=== PATIENT | female | born 1970 | race Caucasian/White ===

== ENCOUNTER → 2023-03-29 | Outpatient (CLI) | payer OTHER, SELFPAY ==
[2023-03-29 17:37] LABS: Absolute Lymphocyte Count 3.05 X10^3/uL (0.83-4.51); Absolute Neutrophil Count 5.7 X10^3/uL (2.0-7.7); Basophil# 0.08 X10^3/uL; Basophil% 0.8 % (0-1); Eosinophil# 0.19 X10^3/uL; Hematocrit 47.3 % (37-47); Hemoglobin 15.7 g/dL (12.0-15.0); Lymphocyte # 3.05 X10^3/ul (0.83-4.51); Lymphocyte % 31.6 % (19-41); Mean Corp Hgb Conc 33.2 g/dL (32-36); Mean Corpuscular Hgb 29.3 pg (27.0-32.0); Mean Corpuscular Volume 88.4 fL (81-99); Mean Platelet Vol. 11.4 fl (6.2-12.0); Monocyte# 0.55 X10^3/uL; Monocyte% 5.7 % (0-10); NRBC Flagged by Analyzer 0 % (0-5); Neutrophil # 5.74 X10^3/uL (2.7-7.7); Neutrophil % 59.5 % (47-70); Platelet Count 320 K/mm3 (150-450); RBC Distribution Width CV 11.9 % (11.6-14.6); RBC Distribution Width SD 38.3 fl (35.1-43.9); Red Blood Count 5.35 M/mm3 (4.2-5.4); White Blood Count 9.7 K/mm3 (4.4-11.0)
[2023-03-29 18:45] LABS: Hemoglobin A1c 12.8 % (3.8-5.6)
[2023-03-29 19:01] LABS: ALB/GLOB Ratio 0.9 RATIO (0.9-2.4); AST(SGOT) 8 U/L (15-37); Alanine Aminotransfer ALT/SGPT 21 U/L (13-56); Albumin, Serum 3.5 g/dL (3.2-5.0); Alkaline Phosphatase 89 U/L (45-117); Anion Gap 9 (5-15); BUN 13 mg/dL (7-18); Calcium,Total 9.4 mg/dL (8.5-10.1); Chloride 100 mmol/L (98-107); Cholesterol 319 mg/dL (200); Creatinine, Serum 0.81 mg/dL (0.55-1.02); EST Glomerular Filtration Rate 79 mL/min (>60); Est Glom Filt Rate - Afr Amer 96 mL/min (>60); Globulin 3.9 g/dL (2.2-4.2); Glucose 452 mg/dL (74-106); High Density Lipoprotein 41 mg/dL; Protein, Total 7.4 g/dL (6.4-8.2); Sodium Level 132 mmol/L (136-145); Thyroid Stim Hormone (TSH) 0.56 uIU/mL (0.358-3.74); Triglycerides 551 mg/dL
== END | disposition home or self-care (01) ==
LOC: MFPLAB 16:07
PROVIDERS: PCP Family Medicine; Visit Provider Family Medicine
DX: Z00.00 Encounter for general adult medical examination without abnormal findings (principal); Z13.220 Encounter for screening for lipoid disorders; Z13.1 Encounter for screening for diabetes mellitus; Z13.0 Encounter for screening for diseases of the blood and blood-forming organs and certain disorders involving the immune mechanism; Z13.228 Encounter for screening for other metabolic disorders
CPT/HCPCS: 80053; 80061; 83036; 84443; 85025

== ENCOUNTER 2023-04-10 08:18 | Outpatient (CLI) | payer OTHER, SELFPAY ==
[2023-04-13 14:09] LABS: HPV APTIMA, High Risk Negative (Negative)
[2023-04-13 17:05] LABS: HPV Reflexed? YES, CHARGE PATIENT
== END 2023-04-10 23:59 | disposition home or self-care (01) ==
LOC: LABSPEC 08:34
PROVIDERS: PCP Family Medicine; Visit Provider Family Medicine
DX: Z12.72 Encounter for screening for malignant neoplasm of vagina (principal)
CPT/HCPCS: 87624; 88175; G0145

== ENCOUNTER → 2023-04-17 | Outpatient (CLI) | payer OTHER, SELFPAY ==
--- NOTE | 2023-04-17 | CER_PTH ---
PATIENT: YANNICK OLGUIN [id number] AGE/SX: 52/F ROOM: RE04/17/[address]: Dr. Yudelka Chinchilla MD : 1970 BED: DIS: 04/17/2023 SPEC #: [id number] RECD: 04/18/23 08:22 STATUS: OLMAN REChloe #: [id number] CHAR: 04/17/23 00:[address]: Yudelka Chinchilla DEPT: SURGICAL PATHOLOGY RECD BY: Vonnie Calzada ENTERED: 04/18/23 08:23 SP TYPE: CERV OTHR DR: Kiah Valenzuela DO Tissues: Uterine cervix, NOS Procedures: Surgery Specimen Level IV HEADER OPERATION: Cervical polyp biopsy PRE-OP DIAGNOSIS: Cervical polyp TISSUE SUBMITTED: Cervical polyp MICROSCOPIC DIAGNOSIS Cervical polyp, biopsy: Benign endocervical polyp, inflamed. AM:yvonne 04/19/2023 MICROSCOPIC DESCRIPTION Slides are reviewed. GROSS DESCRIPTION Received is one container labeled with the patient's name and not further designated. The specimen consists of a single elongated fragment of maya tissue measuring 0.5 x 0.2 x 0.2 cm. The specimen is totally submitted in one cassette. / AM:yvonne 04/18/2023 TC:2 CPT: 19014
== END | disposition home or self-care (01) ==
PROVIDERS: PCP Family Medicine; Visit Provider Obstetrics & Gynecology
DX: N84.1 Polyp of cervix uteri (principal)
CPT/HCPCS: 88305

== ENCOUNTER → 2023-04-19 | Outpatient (CLI) | payer OTHER, SELFPAY ==
--- NOTE | 2023-04-19 16:10 | US_ITS ---
STUDY: ULTRASOUND OF THE FEMALE PELVIS - COMPLETE REASON FOR EXAM: Female, 52 years old. Polyp LMP: August 02, 2022. TECHNIQUE: Transabdominal TECHNICAL QUALITY: Adequate. COMPARISON: None. FINDINGS: The uterus is anteverted and is in a midline position. The uterus measures 8.6 cm x 8.5 cm x 6 cm. Normal uterine cervix. The endometrium measures 4 mm in thickness, and is hyperechoic. There is no demonstrated endometrial mass. Is a 4.5 cm x 4.5 cm x 3.4 cm fibroid in the fundal portion of the uterus. A similar appearing fibroid measuring 4.7 cm x 5.6 x 5.9 cm is also seen in the body of the uterus. I.U.D. - The patient does not have an I.U.D. The right ovary is non-visualized. The left ovary is non-visualized. There is no fluid in the cul-de-sac. The pre void volume of the bladder was 736 ml. US/Pelvic (Non ) IMPRESSION: Fibroid uterus. Electronically Signed: Kehinde Macias MD at 9:28 EST ,
== END | disposition home or self-care (01) ==
LOC: US 16:07
PROVIDERS: PCP Family Medicine; Referring Provider Obstetrics & Gynecology; Visit Provider Obstetrics & Gynecology
DX: N84.1 Polyp of cervix uteri (principal)
CPT/HCPCS: 76856

== ENCOUNTER 2023-04-20 09:49 | Day surgery (SDC) | payer OTHER, SELFPAY ==
[2023-04-20] VITALS (7 sets, daily range): BP systolic 115–136; BP diastolic 75–88; PULSE 76–104; RESP 14–18; TEMP 37.2–37.4; O2SAT 92–100; BMI 34.8
[2023-04-20] MEDS: Lactated Ringers 1,000 ML 15 ML IV (10:39)
[2023-04-20 10:45] LABS: Bedside Glucose 232 mg/dL (74-106)
[2023-04-20 10:46] LABS: Internal QC Validated? YES +Cl - CLEAR BKGD; Pregnancy, Urine Negative Negative; Record Kit Lot#,Urine Preg 667200
[2023-04-20 10:57] LABS: ALB/GLOB Ratio 1.1 RATIO (0.9-2.4); AST(SGOT) 11 U/L (15-37); Alanine Aminotransfer ALT/SGPT 21 U/L (13-56); Albumin, Serum 3.8 g/dL (3.2-5.0); Alkaline Phosphatase 71 U/L (45-117); Anion Gap 8 (5-15); BUN 16 mg/dL (7-18); BUN/Creat Ratio 21.5 RATIO (10-20); Calcium,Total 9.6 mg/dL (8.5-10.1); Chloride 106 mmol/L (98-107); Creatinine, Serum 0.74 mg/dL (0.55-1.02); EST Glomerular Filtration Rate 87 mL/min (>60); Est Glom Filt Rate - Afr Amer 106 mL/min (>60); Estimated Creatinine Clearance 78.54 ml/min; Globulin 3.6 g/dL (2.2-4.2); Glucose 222 mg/dL (74-106); Potassium 3.9 mmol/L (3.5-5.1); Protein, Total 7.4 g/dL (6.4-8.2); Sodium Level 138 mmol/L (136-145)
--- NOTE | 2023-04-20 11:36 | PCM.HP.BLA ---
History and Physical Assessment and Plan (1) Cervical polyp: Status: Acute Comment: biopsy done, recommend d and c hysteroscopy cervical polypectomy ALDAIR if biopsy normal. cleared by PCP for surgery. Orders: Orders Pelvic (Non ) Today N84.1 - Polyp of cervix uteri Addendum polyp prepped with betadine and biopsy taken with tishler forceps, bleeding controlled with pressure, silver nitrate, and monsel's paste. EBL 20cc. reviewed bleeding precautions with patient. 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 Is patient in pain?: No Allergies No Known Allergies Allergy (Unverified 04/17/23 15:46) Medications dapagliflozin propanediol 10 mg tablet (Farxiga) 10 mg PO DAILY 04/17/23 [History Confirmed 04/17/23] lisinopril 10 mg tablet 10 mg PO DAILY 04/17/23 [History Confirmed 04/17/23] Is last menstrual period known: Yes Last Menstrual Period: 08/07/22 Patient : No : No PFSH Medical History Diabetes High cholesterol Hypertension Tobacco use Family History (Updated 04/17/23 @ 15:51 by Juany Cruz) Mother Diabetes Hypertension Thyroid disorderFather Diabetes Hypertension Social History (Updated 04/17/23 @ 15:55 by Juany Cruz) adopted: No household members: none number of children: 0 current occupational status: employed 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 she is newly diagnosed with chronic medical problems and has been started on medications. she denies any vaginal bleeding but did feel a lump vaginally and her PCP recommended she come here. Pap was done and it was normal. she is newly diabetic but blood sugars are down to 190 already with medication and diet. she denies pelvic pain or pressure. Female Reproductive History Last Menstrual Period: 08/07/22 Menopausal Symptoms: No night sweats History 0 Elective abortions Hx Para Spontaneous abortions Hx # Term Pregnancies Ectopic pregnancies Hx # Pregnancies Multiple births # of living children 0 ROS Const Constitutional: Denies fatigue, night sweats, weight gain or weight loss ENT ENT: Reports system reviewed and no additional complaints, except as documented Cardio Card: Denies chest pain Resp Resp: Denies cough or dyspnea GI GI: Reports as per HPI; Denies abdominal pain, constipation, nausea or vomiting : Denies nipple discharge, urinary frequency, urinary incontinence, urinary hesitancy, urinary urgency, vaginal discharge, vaginal dryness, vaginal odor or vaginal pruritus Musc Musc: Denies arthralgias, back pain or muscle weakness Skin Skin/Breast: Denies alopecia, change in hair, dry skin, breast mass, breast pain, breast skin changes or nipple discharge Neuro Neuro: Reports system reviewed and no additional complaints, except as documented Psych Psych: Reports system reviewed and no additional complaints, except as documented Endo Endo: Denies cold intolerance, excessive sweating, heat intolerance or polydipsia Reginaldo/Lymph Hematologic/Lymphatic: Denies easy bleeding, Denies easy bruising and Denies lymphadenopathy Exam Const General: cooperative, healthy appearing, comfortable and no acute distress Orientation: alert [facility] Head: normal to inspection and normocephalic Ears: hearing grossly normal bilaterally and external ears normal Nose: external nose normal and nares normal Face and sinus: normal facial exam Neck Neck: normal visual inspection and no lymphadenopathy Thyroid: thyroid normal Chest Chest palpation & inspection: normal inspection of the chest Resp Effort & Inspection: normal respiratory effort Cardio Rate: regular rate GI Inspection: normal to inspection and non-distended Palpation: soft and no hepatosplenomegaly Other: large 5 cm x 3 cm cervical polyp with large base attached to right cervix. normal vagina and nl uterus and ovaries Musc Other: gross motor intact no deficits, full bilateral strength Skin General: no rashes or lesions noted Neuro General: patient alert, patient awake, moves all extremities and no focal motor deficits Motor: muscle tone normal throughout Extrem General: normal to inspection and no pedal edema Psych Appearance: grossly normal Mental Status: mental status grossly normal Affect: normal affect Speech and Movement: speech and movement normal Coding Level of Care Code Off vis,new,level 4 Diagnoses Cervical polyp N84.1 Assessment and Plan Assessment and Plan (1) Cervical polyp: Status: Acute Comment: biopsy done, recommend d and c hysteroscopy cervical polypectomy ALDAIR if biopsy normal. cleared by PCP for surgery. Orders: Orders Pelvic (Non ) Today N84.1 - Polyp of cervix uteri Plan After discussing the patient's diagnosis and treatment plan options, patient wishes to proceed with surgical management. I have discussed with the patient the risks, benefits, and alternatives of the procedure which include but are not limited to risks of anesthesia, bleeding, infection, possible damage to bowel, bladder, or surrounding vasculature which could lead to additional surgery to evaluate any complications. Patient agrees to procedure and wishes to proceed. ACOG/uptodate references given for additional information regarding procedure. UPDATE- I have seen the patient and performed any clinically relevant updates to the history and physical exam. Yudelka Chinchilla MD
--- NOTE | 2023-04-20 11:55 | EMB_PTH ---
PATIENT: YANNICK OLGUIN [place] [facility] [place][id number] AGE/SX: 52/F ROOM: RE04/20/[address]: Dr. Yudelka Chinchilla MD : 1970 BED: DIS: 04/20/2023 SPEC #: [id number] RECD: 04/23/23 07:56 STATUS: OLMAN QUARLESChloe #: [id number] CHAR: 04/20/23 11:[address]: Yudelka Chinchilla DEPT: SURGICAL PATHOLOGY RECD BY: Vonnie Calzada ENTERED: 04/23/23 07:58 SP TYPE: ENDOM BX/C DANA DR: Kiah Valenzuela DO Tissues: A - Endocervical B - Endometrium, NOS Procedures: Surgery Specimen Level IV HEADER OPERATION: Dilation and curettage, hysteroscopy, polypectomy, Symphion PRE-OP DIAGNOSIS: Cervical polyp TISSUE SUBMITTED: A - Cervical polyp, B - Endometrial polyp and curettings MICROSCOPIC DIAGNOSIS A. Cervical polyp, polypectomy: Benign endocervical polyp, ulcerated and inflamed. B. Endometrial polyp and curettings: Weakly proliferative dyssynchronous endometrium with focal glandular breakdown. Fragments of benign myometrium. AM:yvonne 04/24/2023 MICROSCOPIC DESCRIPTION Slides are reviewed. GROSS DESCRIPTION A - Received in fixative is one container labeled with the patient's name and designated cervical polyp. The specimen consists of a polypoid fragment of maya tissue measuring 4.0 x 2.5 x 1.5 cm. A inbound customer service representative longitudinal section is submitted in one cassette. B - Received in fixative is one container labeled with the patient's name and designated endometrial polyp. The specimen consists of multiple irregular fragments of light maya soft tissue that in aggregate measure 3.0 x 1.0 x 0.2 cm. The specimen is totally submitted in one cassette. / AM:yvonne 04/23/2023 TC:5 CPT: 04990 x2
[2023-04-20] MEDS: Cefotetan 2 GM in 0.9% NS 100 ML IV (12:24)
[2023-04-20] MEDS: Lidocaine 1% (30 ml sdv) 30 ML Vial (12:25)
--- NOTE | 2023-04-20 12:55 | PCM.OPRPT ---
Problems Associated Problem List Diagnoses (1) Cervical polyp: (2) Endometrial polyp: Report of Operation Date of Procedure: 04/20/23 Pre-Operative Diagnosis: endocervical polyp Post-Operative Diagnosis: same Surgery/Procedure Performed:: d and c hysteoroscpy symphion resection polypectomy/hysteroscopic myomectomy cervical polypectomy Description of Surgical Findings:: endometrial polyp x 2 large cervical polyp 5 x 3 cm attached to anterior lip of cervix Surgeon: Yudelka Chinchilla seo marketing specialist: None Type of Anesthesia: Local MAC Special Medications: none Specimen's removed: EMC, polyp of cervix and endometrial polyp possible endometrial fibroid? Drains: none Estimated Blood Loss (mL): 50 Fluids Replaced: crystalloid Description of Procedure: Patient was prepped and draped in a normal sterile fashion under MAC anesthesia. A paracervical block was placed with 1% lidocaine. A weighted speculum was placed in the vagina and two stay sututres were plcaed on either side of the cervix. the large 5 x 3 cm cervical polyp was attached to the left side of the cervix and the base was bovied across and then sutured with figur eof eight 0 vicryl sutures. then the anterior lip of the cervix was grasped with a single-tooth tenaculum. Cervix was progressively dilated to allow passage of a 5 mm hysteroscope. The lining was fully visualized and noted to have a large poly pand either a polyp or possible sumbmuosal fibroid . Uterine sounded to 10 cm. Using the symphion device, the polyp and either polyp or fibroid was progressively removed without complications. Direct visual curettage was performed using the device , and all specimens were sent to pathology. All instruments were removed from the vagina and excellent hemostasis was noted. Patient was awoken and taken to recovery in stable condition. Grafts/Implants Used: none Complications none Admit VTE Documentation VTE Present on Admission: No VTE Mechan Device Prophylaxis: SCD's Multi Select Codes Urinary/Genital Urinary/Genital CPT Codes: 03922 Hysteroscopy,EMC, Polypectomy and Other Procedure See Report (ALERT BILLING)
--- NOTE | 2023-04-20 12:57 | DCINST_ITS ---
Discharge Instructions Diet Discharge Diet: No restrictions Activity Discharge Activity: Return to Normal Activity, May Shower and May Take a Tub Bath (after 1 week) May resume sexual activity in: 1-2 weeks Weight Bearing Status: Weight bearing as tolerated Lifting Restrictions: none Dressing / Incision Call your doctor if you observe: Fever of 101 or Higher, Using more than 1 pad per hour, Shortness of breath and Uncontrolled pain Follow Up Care Please Follow Up With: Yudelka Chinchilla MD When: Call [phone] to schedule appointment. Test Results: Test results from this visit will be discussed in further detail at your follow- up appointment, if applicable. Discharge Plan Admission Attending Provider: Yudelka Chinchilla Primary Care Provider: Kiah Valenzuela Discharge Orders/Prescriptions Prescriptions: No Action lisinopril 10 mg tablet 10 mg PO DAILY Farxiga 10 mg tablet 10 mg PO DAILY Referrals / Follow Up: Kiah Valenzuela, DO [Primary Care Provider] - Disposition Disposition (needs filled in before D/C Order can be placed): Home, Self Care
[2023-04-20 13:48] LABS: Bedside Glucose 166 mg/dL (74-106)
== END 2023-04-20 13:52 | disposition home or self-care (01) ==
LOC: SDC 09:51 → AC 09:53
PROVIDERS: Anesthesiology; PCP Family Medicine; Referring Provider Obstetrics & Gynecology; Visit Provider Obstetrics & Gynecology
PROC: 0UB98ZZ Excision of Uterus, Via Natural or Artificial Opening Endoscopic (ICD-10-PCS; CPT 58558; principal; 2023-04-20 11:40)
DX: N84.0 Polyp of corpus uteri (principal); E11.9 Type 2 diabetes mellitus without complications; N84.1 Polyp of cervix uteri; E78.00 Pure hypercholesterolemia, unspecified; I10 Essential (primary) hypertension; Z79.84 Long term (current) use of oral hypoglycemic drugs; Z79.899 Other long term (current) drug therapy; Z72.0 Tobacco use
CPT/HCPCS: 58561; 80053; 81025; 82962; 86850; 86900; 86901; 88305; 93005; J7120; J2405

== ENCOUNTER → 2023-05-10 | Outpatient (CLI) | payer OTHER, SELFPAY ==
[2023-05-10 16:09] LABS: Microalbumin,Random Urine < 5.0 mg/L (NO RANGE EST.)
[2023-05-10 16:47] LABS: AST(SGOT) 10 U/L (15-37); Alanine Aminotransfer ALT/SGPT 16 U/L (13-56); Albumin, Serum 3.7 g/dL (3.2-5.0); Alkaline Phosphatase 65 U/L (45-117); Anion Gap 7 (5-15); BUN 11 mg/dL (7-18); BUN/Creat Ratio 17.9 RATIO (10-20); Calcium,Total 9.4 mg/dL (8.5-10.1); Chloride 106 mmol/L (98-107); Cholesterol 224 mg/dL (200); Creatinine, Serum 0.62 mg/dL (0.55-1.02); EST Glomerular Filtration Rate 109 mL/min (>60); Est Glom Filt Rate - Afr Amer 132 mL/min (>60); Globulin 3.6 g/dL (2.2-4.2); Glucose 140 mg/dL (74-106); High Density Lipoprotein 43 mg/dL; Potassium 4.1 mmol/L (3.5-5.1); Protein, Total 7.3 g/dL (6.4-8.2); Sodium Level 138 mmol/L (136-145); Triglycerides 127 mg/dL; Very Low Density Lipoprotein 25 mg/dL (5-40)
[2023-05-10 18:02] LABS: Hemoglobin A1c 10.7 % (3.8-5.6)
== END | disposition home or self-care (01) ==
LOC: MTLAB 12:38
PROVIDERS: PCP Family Medicine; Referring Provider Family Medicine; Visit Provider Family Medicine
DX: E11.65 Type 2 diabetes mellitus with hyperglycemia (principal)
CPT/HCPCS: 36415; 80053; 80061; 82043; 82570; 83036

== ENCOUNTER → 2023-10-16 | Outpatient (CLI) | payer OTHER, SELFPAY ==
--- NOTE | 2023-10-16 16:42 | US_ITS ---
STUDY: ULTRASOUND OF THE FEMALE PELVIS - COMPLETE REASON FOR EXAM: Female, 53 years old. Uterine fibroid LMP: Patient is postmenopausal. TECHNIQUE: Transabdominal and Transvaginal TECHNICAL QUALITY: Adequate. COMPARISON: Comparison is made with prior study dated April 19, 2023. FINDINGS: The uterus is anteverted and is in a midline position. The uterus measures 7 cm x 6.9 cm x 3.5 cm. Normal uterine cervix. The endometrium measures 1 mm in thickness, and is heterogeneous (striated). There is no demonstrated endometrial mass. Heterogeneous appearance of the myometrium. 2 dominant fibroids are seen. The larger measures 8.3 cm x 6.9 cm x 7.8 cm. A similar fibroid measuring 5.2 cm x 5.2 cm by 3.4 cm is seen as well. These have increased in size as compared to prior study. I.U.D. - The patient does not have an I.U.D. The right ovary is non-visualized. The left ovary is visualized. The left ovary measures 2.5 cm x 2.2 cm x 1.6 cm. There is a 1.4 cm x 1.6 cm x 0.8 cm follicle. There is also evidence of a left ovarian cyst measuring 2.8 cm x 1.5 cm x 1.3 cm. There is no visualized left adnexal mass or complex lesion. There is normal arterial and normal venous vascularity. There is no fluid in the cul-de-sac. US/Pelvic w/ Transvaginal IMPRESSION: Fibroid uterus. The fibroids have increased in size as compared to prior study. 2.8 cm x 1.5 cm x 1.3 cm cyst in the left ovary. Follow-up recommended. Electronically Signed: Kehinde Macias MD at 14:25 EDT ,
== END | disposition home or self-care (01) ==
PROVIDERS: PCP Family Medicine; Referring Provider Obstetrics & Gynecology; Visit Provider Obstetrics & Gynecology
DX: D25.9 Leiomyoma of uterus, unspecified (principal)
CPT/HCPCS: 76830; 76856

== ENCOUNTER → 2024-04-14 | Outpatient (CLI) | payer OTHER, SELFPAY | END | disposition home or self-care (01) | LOC: OPBI 07:38 | PROVIDERS: PCP Family Medicine; Referring Provider Family Medicine; Visit Provider Family Medicine | DX: Z12.31 Encounter for screening mammogram for malignant neoplasm of breast (principal) | CPT/HCPCS: 77063; 77067 ==

== ENCOUNTER → 2024-04-17 | Outpatient (CLI) | payer OTHER, SELFPAY ==
--- NOTE | 2024-04-17 07:40 | US_ITS ---
STUDY: ULTRASOUND BREAST - RIGHT REASON FOR EXAM: Female, 53 years old. Abnormal screening mammogram. TECHNIQUE: Axial and longitudinal images of the RIGHT breast were performed with a high resolution ultrasound transducer. # OF IMAGES: 45 COMPARISON: Comparison is made with prior mammogram dated April 14, 2024. FINDINGS: RIGHT Breast: The mammographic findings correspond to a 1 cm x 1.3 cm x 1.2 cm ill-defined hypoechoic nodule in the retroareolar region of the breast. This corresponds to the mammographic findings. There is evidence of increased vascularity. Biopsy recommended. Incidental note is also made of a 3 mm x 3 mm x 1 mm simple cyst. US/Breast Limited Unilateral IMPRESSION: The mammographic findings correspond to 1 cm x 1.3 cm x 1.2 cm ill-defined hypoechoic nodule in the retroareolar region of the breast. Biopsy is recommended. ASSESSMENT CATEGORY: BIRADS Category 4: Suspicious - Biopsy Should Be Considered. A letter regarding these results will be sent to the patient by the facility within 30 days. Electronically Signed: Kehinde Macias MD at 12:30 EST ,
== END | disposition home or self-care (01) ==
LOC: OPUS 07:38
PROVIDERS: PCP Family Medicine; Referring Provider Family Medicine; Visit Provider Family Medicine
DX: N63.10 Unspecified lump in the right breast, unspecified quadrant (principal)
CPT/HCPCS: 76642

== ENCOUNTER 2024-04-18 07:42 | Day surgery (SDC) | payer OTHER, SELFPAY ==
--- NOTE | 2024-04-18 07:49 | PCM.PRE.AN2 ---
ASA Classification* ASA Classification ASA Classification: 2 Assessment & Plan Anesthesia* Anesthesia Assessment Anesthesia Assessment: Discussed sedation and/or anesthesia options, risks, benefits, and alternatives with patient/parents/legal guardian/POA. Questions invited. The patient/parents/legal guardian/POA seems to understand and agrees to proceed with anesthesia plan. Reviewed the physical assessment, medical history, allergy history and patient home medications list prior to surgery/procedure/anesthetic and documented any changes. Performed airway and anesthesia risk assessments. Anesthesia Type Anesthesia Type: MAC Anesthesia Focused Assessment* Airway Assessment Mouth opens: >3 cm Mallampati Score: II Focused Labs Anesthesia Preop lab: CBC WBC 9.7 K/mm3 (4.4-11.0) 03/29/23 16:07 RBC 5.35 M/mm3 (4.2-5.4) 03/29/23 16:07 Hgb 15.7 g/dL (12.0-15.0) H 03/29/23 16:07 Hct 47.3 % (37-47) H 03/29/23 16:07 Plt Count 320 K/mm3 (150-450) 03/29/23 16:07 CHEMISTRY Potassium 4.1 mmol/L (3.5-5.1) 05/10/23 12:39 Sodium 138 mmol/L (136-145) 05/10/23 12:39 BUN 11 mg/dL (7-18) 05/10/23 12:39 Creatinine 0.62 mg/dL (0.55-1.02) 05/10/23 12:39 Glucose 140 mg/dL (74-106) H 05/10/23 12:39 POC Glucose 166 mg/dL (74-106) H 04/20/23 13:18 TSH 0.56 uIU/mL (0.358-3.74) 03/29/23 16:07 COAG Urine Test Negative Negative 04/20/23 10:20 Pre-Assessment Diagnosis/Proposed Procedure Planned Operative Procedure(s): Colonoscopy - Open Access Anesthesia History 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 When Was Last Pacemaker Check QUESTION #4 FULL TEXT: You/Your Family Experience fever (hyperthermia) with Anesthesia Last Oral Intake Last Oral intake: Last Oral Intake NPO since Meds taken in AM with sips of water? Meds patient instructed to take am of surgery PONV PONV - mobile paint specialist: PONV - mobile paint specialist Female Yes 04/15/24 09:48 HX of Motion Sickness Yes 04/15/24 09:48 HX of N/V After Surgery No 04/15/24 09:48 Non-Smoker No 04/15/24 09:48 Duration of Surgery greater No 04/15/24 09:48 than 60 minutes Number of Risk Factors 2 04/15/24 09:48 PONV Score Moderate Risk 04/15/24 09:48 Height & Weight Height & Weight: Anesthesia: Height & Weight Height 5 ft 5 in 03/24/24 08:39 Respiratory Assessment Respiratory Assessment - mobile paint specialist: Respiratory Tract Infection Hx - mobile paint specialist Hx Respiratory Tract Infection No 04/15/24 09:48 STOP Sleep Apnea STOP Sleep Apnea - mobile paint specialist: STOP Sleep Apnea - mobile paint specialist Hx Hypertension Yes: CONTROLLED WITH MED 04/15/24 09:48 Hx Sleep Apnea No 04/15/24 09:48 CPAP BIPAP Do you snore loudly (louder No 04/15/24 09:48 than talking or can be heard Do you often feel tired/ No 04/15/24 09:48 fatigued/ sleepy during daytime? Has anyone observed you stop No 04/15/24 09:48 breathing during sleep? STOP Results Negative 04/15/24 09:48 QUESTION #5 FULL TEXT : Do you snore loudly (louder than talking or can be heard through closed doors)? Tobacco Use History Tobacco Use History - mobile paint specialist: Tobacco Use History - mobile paint specialist Tobacco Use Smoking Status Current every day smoker 04/15/24 09:48 Hx Tobacco Use No 04/15/24 09:48 Years Smoking Packs Smoked per Day Smoking Cessation Date was within the last 15 years Hx Smoking Cessation Date Hx Smoking Cessation No 04/15/24 09:48 Counseling Hematologic Medial History Hematologic Hx - mobile paint specialist: Hematologic Medical Hx - lawn mower Hx of Blood Transfusion No 04/15/24 09:48 Hx of Transfusion in last 3 No 04/15/24 09:48 Months Date of Last Transfusion (if within last 3 months) Ever experience any problems No 04/15/24 09:48 with transfusion(s)? Specify any problems Hx of Preganancy in last 3 No 04/15/24 09:48 Months Nurse Filling Out Transfusion VCHRISTIN 04/15/24 09:48 & Questions: Date: 04/15/24 04/15/24 09:48 Time: 09:49 04/15/24 09:48 Patient unable to answer at this time (ie. confused, unrespo /Reproduction History /Reproductive History - mobile paint specialist: /Reproductive Hx- mobile paint specialist Hx Now No 04/15/24 09:48 Gestational Age (in weeks): EDC: Hx Hx Para Hx Section SAB No 04/15/24 09:48 [facility] Medical History Endometrial polyp Wears glasses Alcohol use Dietary restriction Shortness of breath on exertion Smoker Leg cramps Cervical polyp Tobacco use Hypertension High cholesterol Diabetes Home Medications ?Medication ?Instructions ?Recorded ?Last Taken ?Type lisinopril 10 mg tablet 10 mg PO DAILY 04/17/23 04/20/23 History metformin 1,000 mg tablet 1,000 mg PO BID 10/19/23 Unknown History rosuvastatin 10 mg tablet 10 mg PO DAILY 10/19/23 Unknown History Allergy/AdvReac Type Severity Reaction Status Date / Time No Known Allergies Allergy Verified 04/15/24 09:46 Family History Mother Diabetes Hypertension Thyroid disorder Father Diabetes Hypertension Surgical History Hx of total hysterectomy S/P D&C (status post dilation and curettage) Social History adopted: No household members: none number of children: 0 current occupational status: employed 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
[2024-04-18 08:07] VITALS: BP 145/101; PULSE 80; RESP 16; TEMP 36.3; O2SAT 100; BMI 27.8
--- NOTE | 2024-04-18 09:00 | COLBX_PTH ---
PATIENT: YANNICK OLGUIN LOC: [facility] U#:[id number] AGE/SX: 53/F ROOM: RE04/18/[address]: Dr. Luis Sorenson MD : 1970 BED: DIS: 04/18/2024 SPEC #: [id number] RECD: 04/18/24 12:15 STATUS: OLMAN REChloe #: [id number] CHAR: 04/18/24 09:[address]: Luis Sorenson DEPT: SURGICAL PATHOLOGY RECD BY: Jackelyn Verdin ENTERED: 04/18/24 13:23 SP TYPE: COLON BX OTHR DR: Valencia Valenzuela, [facility], DO Tissues: Sigmoid colon biopsy Procedures: Surgery Specimen Level IV HEADER OPERATION: Colonoscopy with biopsy PRE-OP DIAGNOSIS: Encounter for screening for malignant neoplasm of colon TISSUE SUBMITTED: Sigmoid polyp biopsy MICROSCOPIC DIAGNOSIS Sigmoid polyp, biopsy: Hyperplastic polyp. CHARLES. 04/21/2024 MICROSCOPIC DESCRIPTION Slides are reviewed. GROSS DESCRIPTION Received in fixative is one container labeled with the patient's name and designated Sigmoid polyp biopsy. The specimen consists of one irregular fragment of light maya soft tissue that measures 0.4 x 0.4 x 0.1 cm. The specimen is totally submitted in one cassette. 04/18/2024 TC:1 CPT:53592
--- NOTE | 2024-04-18 09:45 | HP.PCM_ITS ---
[facility] - General General Date of Admission: 04/18/24 Date of Service: 04/18/24 Chief Complaint: Colon cancer screening HPI Narrative YANNICK OLGUIN, is a 53 F who presents today for screening colonoscopy. She has had no prior colonoscopy. No family history of colon polyps or colon cancers. No GI symptoms other than occasional constipation [facility] Medical History Endometrial polyp Wears glasses Alcohol use Dietary restriction Shortness of breath on exertion Smoker Leg cramps Cervical polyp Tobacco use Hypertension High cholesterol Diabetes Home Medications ?Medication ?Instructions ?Recorded ?Last Taken ?Type lisinopril 10 mg tablet 10 mg PO DAILY 04/17/23 04/20/23 History metformin 1,000 mg tablet 1,000 mg PO BID 10/19/23 Unknown History rosuvastatin 10 mg tablet 10 mg PO DAILY 10/19/23 Unknown History Allergy/AdvReac Type Severity Reaction Status Date / Time No Known Allergies Allergy Verified 04/18/24 08:06 Family History Mother Diabetes Hypertension Thyroid disorder Father Diabetes Hypertension Surgical History Hx of total hysterectomy S/P D&C (status post dilation and curettage) Social History adopted: No household members: none number of children: 0 current occupational status: employed 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 [employer] current occupational exposures/hazards: No pets and animals: No history of recent travel: No sexually active: No Smoking Status: Current every day smoker tobacco type: cigarettes alcohol intake: current alcohol intake frequency: 3 or more drinks per day A lcohol type: beer caffeine: Yes Type: coffee what type of physical activity do you participate in: none seatbelt use: always do you feel safe at home: Yes ROS Constitutional Constitutional: Reports systems reviewed and no addt'l complaints, except as documented Eyes Eyes: Reports systems reviewed and no addt'l complaints, except as documented ENT HEENT: Reports systems reviewed and no addt'l complaints, except as documented Cardiovascular Cardiovascular: Reports systems reviewed and no addt'l complaints, except as documented Respiratory/Chest Respiratory/Chest: Reports systems reviewed and no addt'l complaints, except as documented Gastrointestinal Gastrointestinal: Reports systems reviewed and no addt'l complaints, except as documented Vital Signs Vital Signs Vital Signs: 04/18/24 08:07 04/18/24 08:07 Temperature 97.3 F L Temperature Source Temporal Pulse Rate 80 Respiratory Rate 16 Respiratory Pattern Normal Blood Pressure 145/101 H Blood Pressure Mean 115 Blood Pressure Source Monitor Blood Pressure Position Semi-Fowlers Blood Pressure Location Right Arm Pulse Ox 100 Oxygen Delivery Method Room Air Weight Weight: 167 lb 8.821 oz Body Mass Index (BMI) 27.8 Assessment & Plan Assessment/Plan (1) Encounter for screening for malignant neoplasm of colon: PLAN: Plan The patient is a 53-year-old female here today for a screening colonoscopy. We discussed the details of the planned procedure including risk benefits and alternatives. She wishes to proceed. This will be scheduled in a timely manner. Charges/Coding Visit Charges Inpatient E&M: 55333 Init Hosp L1
[2024-04-18 10:21] VITALS: BP 134/80; BP 145/101; PULSE 84; RESP 16; TEMP 37; O2SAT 97
[2024-04-18 10:22] LABS: Bedside Glucose 124 mg/dL (74-106)
[2024-04-18 10:25] VITALS: BP 127/78; BP 145/101; PULSE 78; RESP 16; O2SAT 97
--- NOTE | 2024-04-18 10:28 | PCM.POST.ANE ---
Anesthesia: Postop Eval I Current Vital Signs Temperature: 98.6 F Pulse Rate: 88 Blood Pressure: 134/80 Respiratory Rate: 16 Pulse Ox: 97 Oxygen Delivery Method: Room Air Assessment Airway patent: Yes Spontaneous unlabored respirations: Yes Mental status: Awake and Calm nausea: No Vomiting: No Anesthesia Complication: No Fluid Hydration Crystalloid volume administer (ml): 45 Total IV fluid infused: 45 Progress Note Anesthesia document: Postop Eval 1 completed: Yes
[2024-04-18 10:30] VITALS: BP 121/80; BP 134/80; BP 145/101; PULSE 77; PULSE 88; RESP 16; TEMP 37; O2SAT 97
[2024-04-18 10:35] VITALS: BP 116/80; BP 145/101; PULSE 68; RESP 16; TEMP 36.5; O2SAT 98
--- NOTE | 2024-04-18 10:43 | OP.CCLET_ITS ---
04/18/2024 Valencia Valenzuela Do Re : Colonoscopy procedure for Ryan Stacy Dear Nicolas This procedure was performed on Thursday, April 18, 2024. My impressions and recommendations are as follows: Impressions : - Internal hemorrhoids. - One 3 mm polyp in the sigmoid colon, removed with a cold biopsy forceps. Resected and retrieved. - The examination was otherwise normal on direct and retroflexion views. Recommendations : - Discharge patient to home (ambulatory). - High fiber diet PRN. - Await pathology results. - Repeat colonoscopy in 3 - 5 years for surveillance based on pathology results. - Return to my office PRN. - Continue present medications. My findings are described in the full procedure note, which is enclosed. If I can be of further assistance, please feel free to contact me at . Sincerely, Luis Sorenson MD 04/18/2024 10:42:54 AM This report has been signed electronically.
[2024-04-18 10:46] VITALS: BP 145/101
--- NOTE | 2024-04-18 11:55 | PCM.POSTANE2 ---
Anesthesia Postop Eval I Sum Postop Eval Completion status Anesthesia document: Postop Eval 1 completed: Yes Anesthesia Postop Eval I Summary Anesthesia Postop Eval I Summary: Anesthesia Postop Eval I: Assessment Summary Airway patent Yes 04/18/24 10:30 [email or web address] Spontaneous unlabored Yes 04/18/24 10:30 [email or web address] respirations Mental status Awake,Calm 04/18/24 10:30 [email or web address] nausea No 04/18/24 10:30 [email or web address] Vomiting No 04/18/24 10:30 [email or web address] Anesthesia Postop Eval I: Fluid Summary Crystalloid volume administer 45 04/18/24 10:30 [email or web address] (ml) Colloids volume administered ( ml) Blood Product volume administered (ml) Total IV fluid infused 45 04/18/24 10:30 [email or web address] Anesthesia Postop Eval I: Summary Notes Anesthesia Complication No 04/18/24 10:30 [email or web address] Anesthesia Complication Comment: Post-operative progress note Anesthesia: Postop Eval II Evaluation Mental status: Awake and Calm Pain Level: 0 nausea: No Vomiting: No Complications Anesthesia Complication: No
== END 2024-04-18 10:52 | disposition home or self-care (01) ==
LOC: EN 07:43 → AC 07:45
PROVIDERS: PCP Family Medicine; Referring Provider Family Medicine; Visit Provider Surgery
PROC: 0DJD8ZZ Inspection of Lower Intestinal Tract, Via Natural or Artificial Opening Endoscopic (ICD-10-PCS; CPT 45378; principal; 2024-04-18 08:55)
DX: Z12.11 Encounter for screening for malignant neoplasm of colon (principal); E11.9 Type 2 diabetes mellitus without complications; K63.5 Polyp of colon; E78.00 Pure hypercholesterolemia, unspecified; I10 Essential (primary) hypertension; F17.210 Nicotine dependence, cigarettes, uncomplicated; K64.8 Other hemorrhoids; Z79.84 Long term (current) use of oral hypoglycemic drugs; Z79.899 Other long term (current) drug therapy
CPT/HCPCS: 45380; 82962; 88305; A4216; J2405

== ENCOUNTER → 2024-05-08 | Outpatient (CLI) | payer OTHER, SELFPAY ==
--- NOTE | 2024-05-08 | BRBX_PTH ---
PATIENT: YANNICK OLGUIN LOC: OPUS U#:[id number] AGE/SX: 53/F ROOM: RE05/08/[address]: Dr. Luis Sorenson MD : 1970 BED: DIS: 05/08/2024 SPEC #: [id number] RECD: 05/08/24 14:53 STATUS: OLMAN REQ #: [id number] CHAR: 05/08/24 00:[address]: Luis Sorenson DEPT: SURGICAL PATHOLOGY RECD BY: Jackelyn Verdin ENTERED: 05/09/24 07:50 SP TYPE: BREAST BX OTHR DR: Valencia Valenzuela, [facility], DO Tissues: Right breast, NOS Procedures: Surgery Specimen Level IV HEADER OPERATION: Ultrasound guided breast biopsy -right PRE-OP DIAGNOSIS: Right retroareolar mass TISSUE SUBMITTED: Right retroareolar mass Ischemic Time: 1 minute Fixation Time: >48 hours MICROSCOPIC DIAGNOSIS Right breast, core biopsy: Mild duct ectasia. Focal intraductal hyperplasia without atypia. No evidence of malignancy. AM. 05/12/2024 MICROSCOPIC DESCRIPTION Slides are reviewed. GROSS DESCRIPTION Received in fixative is one container labeled with the patient's name and designated Right breast. The specimen consists of multiple irregular and elongated fragments of maya-white soft tissue that in aggregate measure 1.7 x 1.5 x 0.2 cm. The specimen is totally submitted in one cassette. . 05/09/2024 TC:5 CPT:96654
--- NOTE | 2024-05-08 13:09 | US_ITS ---
STUDY: ULTRASOUND BREAST - RIGHT REASON FOR EXAM: Female, 53 years old. Ultrasound-guided right chest biopsy. TECHNIQUE: Axial and longitudinal images of the RIGHT breast were performed with a high resolution ultrasound transducer. # OF IMAGES: 37 COMPARISON: Comparison is made with prior sonogram dated April 17, 2024. FINDINGS: RIGHT Breast: Under direct sonographic guidance, the surgeon performing core biopsies of the retroareolar nodule US/US Breast Biopsy 1st Lesion IMPRESSION: Ultrasound-guided biopsy of the right retroareolar nodule. ASSESSMENT CATEGORY: Electronically Signed: Kehinde Macias MD at 15:30 EST ,
--- NOTE | 2024-05-08 14:48 | BI_ITS ---
MAMMOGRAPHY - UNILATERAL DIAGNOSTIC: RIGHT BREAST REASON FOR EXAM: Female, 53 years old. Postbiopsy clip placement. PERTINENT HISTORY: TECHNIQUE: Mediolateral oblique and craniocaudad views were obtained. CAD: Full Field Digital Mammography with Computer Added Detection was performed. COMPARISON: Comparison is made with prior study dated April 14, 2024. FINDINGS: Breast Composition: There are scattered areas of fibroglandular density. A tissue clip marker is seen within the 1.6 cm x 1.8 cm well-defined nodule in the retroareolar region of the right breast. No other significant abnormalities are identified. BI/DIAG MAMM W/CAD, UNILAT IMPRESSION: Tissue marker is seen within the 1.6 cm x 1.8 cm well-defined nodule in the retroareolar region of the right breast. ASSESSMENT CATEGORY: BIRADS Category 2: Benign. A letter regarding these results will be sent to the patient by the facility within 30 days. Approximately 10% of breast cancers are not detected by mammography. A normal mammogram should not delay biopsy of a clinically suspicious abnormality. Electronically Signed: Kehinde Macias MD at 15:01 EST ,
--- NOTE | 2024-05-08 14:54 | OP.PCM_ITS ---
Problems Associated Problem List Diagnoses (1) Abnormal ultrasound of breast: Operative Report (Standard) Operative Information Surgery/Procedure Performed: Right breast ultrasound-guided suction core biopsy Surgeon: Luis Sorenson Date of Procedure: 05/08/24 Procedure Start Time: 14:20 Procedure Stop Time: 14:40 Pre-Operative Diagnosis: Abnormal right breast ultrasound Post-Operative Diagnosis: Same Select all DRAINS/GRAFTS/IMPLANTS that apply: Implanted device Implanted device details: Marking clip deployed at end of procedure Type of Anesthesia: Local Special Medications: Local anesthetic Estimated Blood Loss: 5 mL Specimen collected: Yes Description of specimen(s) removed: Right breast tissue Description of surgery: The patient is a 53-year-old female recently seen to the office with an abnormal right breast mammogram and ultrasound involving the right breast. A small density was seen on ultrasound near the nipple. Due to the small size and location, I opted to biopsy this lesion in the mammography suite rather than the office. We discussed the details of the planned procedure. Patient wished to proceed. She was placed supine on the procedure room cart once informed consent was addressed. The ground source heat pump technician was able to identify the lesion. This was just deep to the nipple areolar complex at about the 9 o'clock position. The area was then prepped and draped in the usual sterile manner. Local anesthetic was infiltrated just deep to the lesion. A small skin incision was made using a #11 blade. Next under ultrasound guidance the mammotome device was inserted and once clearly within the lesion several suction core biopsies were obtained with good tissue sampling. Patient tolerated this portion well. The device was then removed and a marking clip was deployed. It did not appear that she did develop a small hematoma. Manual pressure was held longer than usual to help minimize bruising and swelling. Steri-Strips were applied as dressing. I advised a compression/sports bra. I will contact her with results of pathology when they become available. A postbiopsy mammogram will be performed. Surgical Findings: See operative note Admissions Coordinator desk clerks supervisor: No Complications Complications: No Admit VTE Documentation VTE Present on Admission: No VTE Mechan Device Prophylaxis: None VTE Pharm Prophylaxis ordered?: No Reason prophylaxis not ordered: Treatment Not Indicated Procedures Integumentary [id number]: 55049 Bx breast 1st lesion us imag
== END | disposition home or self-care (01) ==
LOC: OPUS 13:09
PROVIDERS: PCP Family Medicine; Referring Provider Surgery; Visit Provider Surgery
DX: N60.41 Mammary duct ectasia of right breast (principal); R92.8 Other abnormal and inconclusive findings on diagnostic imaging of breast
CPT/HCPCS: 19083; 77065; 88305

== ENCOUNTER → 2024-05-09 | Outpatient (CLI) | payer OTHER, SELFPAY ==
[2024-05-09 12:14] LABS: Absolute Lymphocyte Count 2.58 X10^3/uL (0.83-4.51); Absolute Neutrophil Count 5.3 X10^3/uL (2.0-7.7); Basophil# 0.07 X10^3/uL; Basophil% 0.8 % (0-1); Eosinophil# 0.25 X10^3/uL; Eosinophils% 2.9 % (0-5); Hemoglobin 14.1 g/dL (12.0-15.0); Lymphocyte # 2.58 X10^3/ul (0.83-4.51); Lymphocyte % 29.7 % (19-41); Mean Corpuscular Hgb 29.1 pg (27.0-32.0); Mean Corpuscular Volume 90.7 fL (81-99); Mean Platelet Vol. 11.9 fl (6.2-12.0); Monocyte% 5.7 % (0-10); NRBC Flagged by Analyzer 0 % (0-5); Neutrophil # 5.28 X10^3/uL (2.7-7.7); Neutrophil % 60.7 % (47-70); Platelet Count 298 K/mm3 (150-450); RBC Distribution Width CV 13.2 % (11.6-14.6); RBC Distribution Width SD 44.3 fl (35.1-43.9); Red Blood Count 4.85 M/mm3 (4.2-5.4); White Blood Count 8.7 K/mm3 (4.4-11.0)
[2024-05-09 12:43] LABS: ALB/GLOB Ratio 1.3 RATIO (0.9-2.4); AST(SGOT) 12 U/L (15-37); Alanine Aminotransfer ALT/SGPT 28 U/L (13-56); Alkaline Phosphatase 51 U/L (45-117); Anion Gap 7 (5-15); BUN 12 mg/dL (7-18); BUN/Creat Ratio 20.1 RATIO (10-20); Calcium,Total 9.3 mg/dL (8.5-10.1); Chloride 106 mmol/L (98-107); Cholesterol 174 mg/dL (200); EST Glomerular Filtration Rate 112 mL/min (>60); Est Glom Filt Rate - Afr Amer 136 mL/min (>60); Globulin 3.1 g/dL (2.2-4.2); Glucose 116 mg/dL (74-106); High Density Lipoprotein 73 mg/dL; Potassium 3.9 mmol/L (3.5-5.1); Protein, Total 7.1 g/dL (6.4-8.2); Sodium Level 140 mmol/L (136-145); Thyroid Stim Hormone (TSH) 0.483 uIU/mL (0.358-3.740); Triglycerides 84 mg/dL; Very Low Density Lipoprotein 17 mg/dL (5-40)
[2024-05-09 13:30] LABS: Creatinine, Urine (random) < 13.00 mg/dL (NO RANGE EST.); Microalbumin,Random Urine < 5.0 mg/L (NO RANGE EST.)
[2024-05-09 14:05] LABS: Hemoglobin A1c 6.1 % (3.8-5.6)
== END | disposition home or self-care (01) ==
LOC: MTLAB 09:54
PROVIDERS: PCP Family Medicine; Referring Provider Family Medicine; Visit Provider Family Medicine
DX: I10 Essential (primary) hypertension (principal); E11.65 Type 2 diabetes mellitus with hyperglycemia; E78.2 Mixed hyperlipidemia
CPT/HCPCS: 36415; 80053; 80061; 82043; 82570; 83036; 84443; 85025

== ENCOUNTER → 2025-06-02 | Outpatient (CLI) | payer OTHER, SELFPAY ==
[2025-06-02 12:28] LABS: Hematocrit 44.4 % (37-47); Hemoglobin 14.3 g/dL (12.0-15.0); Immature Granulocytes Count 0.030 X10^3/uL (0.0-0.0); Mean Corp Hgb Conc 32.2 g/dL (32-36); Mean Corpuscular Volume 91.5 fL (81-99); Mean Platelet Vol. 11.2 fl (6.2-12.0); NRBC Flagged by Analyzer 0 % (0-5); Platelet Count 279 K/mm3 (150-450); RBC Distribution Width CV 12.8 % (11.6-14.6); RBC Distribution Width SD 42.6 fl (35.1-43.9); Red Blood Count 4.85 M/mm3 (4.2-5.4); White Blood Count 9.7 K/mm3 (4.4-11.0)
[2025-06-02 12:38] LABS: Microalbumin,Random Urine 20.4 mg/L (<20 mg/L)
[2025-06-02 12:54] LABS: AST(SGOT) 18 U/L (<=31); Alanine Aminotransfer ALT/SGPT 17 U/L (<=34); Albumin, Serum 4.6 g/dL (3.5-5.0); Alkaline Phosphatase 56 U/L (35-104); Anion Gap 11 (7-18); BUN 11 mg/dL (4-19); BUN/Creat Ratio 15.5 RATIO (10-20); Calcium,Total 9.8 mg/dL (7.6-11.0); Carbon Dioxide 26.2 mmol/L (20.0-29.0); Chloride 104 mmol/L (96-106); Cholesterol 185 mg/dL (<=200); Globulin 2.7 g/dL (2.2-4.2); Glucose 143 mg/dL (70-99); Low Density Lipoprotein Calc. 96 mg/dL; Potassium 4.7 mmol/L (3.5-5.1); Triglycerides 80 mg/dL; Very Low Density Lipoprotein 16 mg/dL (5-40); cholesterol:hdl ratio screen 2.48
== END | disposition home or self-care (01) ==
LOC: VSLAB 08:52
PROVIDERS: PCP Family Medicine; Referring Provider Family Medicine; Visit Provider Family Medicine
DX: I10 Essential (primary) hypertension (principal); E78.2 Mixed hyperlipidemia
CPT/HCPCS: 36415; 80053; 80061; 82043; 84443; 85025